=== PATIENT | female | born 2005 | race Caucasian/White ===

== ENCOUNTER 2024-02-28 05:49 | Day surgery (SDC) | payer OTHER, SELFPAY ==
[2024-02-28] VITALS (9 sets, daily range): BP systolic 113–138; BP diastolic 69–88; PULSE 78–102; RESP 16–18; TEMP 36.4–37; O2SAT 100; BMI 20.9
[2024-02-28 06:17] LABS: Internal QC Validated? YES +Cl - CLEAR BKGD; Pregnancy, Urine Negative Negative
--- NOTE | 2024-02-28 06:54 | PCM.PRE.AN2 ---
ASA Classification* ASA Classification ASA Classification: 1 Assessment & Plan Anesthesia* Anesthesia Assessment Anesthesia Assessment: Discussed sedation and/or anesthesia options, risks, benefits, and alternatives with patient/parents/legal guardian/POA. Questions invited. The patient/parents/legal guardian/POA seems to understand and agrees to proceed with anesthesia plan. Reviewed the physical assessment, medical history, allergy history and patient home medications list prior to surgery/procedure/anesthetic and documented any changes. Performed airway and anesthesia risk assessments. Anesthesia Type Anesthesia Type: MAC History Source History Obtained from:: Patient and Chart Anesthesia Focused Assessment* Temperature: 98.6 F Pulse Rate: 94 Blood Pressure: 138/85 Respiratory Rate: 16 Pulse Ox: 100 Oxygen Delivery Method: Room Air Airway Assessment Mouth opens: >3 cm Mallampati Score: IV Teeth Condition: Intact Neck Range of motion (ROM): Full ROM Focused Labs Anesthesia Preop lab: CBC CHEMISTRY COAG Urine Test Negative Negative 02/28/24 06:00 Pre-Assessment Diagnosis/Proposed Procedure Planned Operative Procedure(s): Excision, Pilonidal Cyst Anesthesia History Anesthesia History - music department chair: Anesthesia History - music department chair Hx Hospitalization No 02/14/24 11:05 Any Problems With Anesthesia No 02/14/24 11:05 Cholinesterase deficiency No 02/14/24 11:05 You/Your Family Experience No 02/14/24 11:05 fever (hyperthermia) with Relationship Recent Exposure to Contagious No 02/28/24 06:26 Disease Does patient have nerve No 02/14/24 11:05 stimulator Patient instructed to have device shut off --Does patient have Pacemaker No 02/28/24 06:28 or ICD? When Was Last Pacemaker Check QUESTION #4 FULL TEXT: You/Your Family Experience fever (hyperthermia) with Anesthesia Last Oral Intake Last Oral intake: Last Oral Intake NPO since 22:00 02/28/24 06:28 Meds taken in AM with sips of No 02/28/24 06:28 water? Meds patient instructed to take am of surgery PONV PONV - music department chair: PONV - music department chair Female Yes 02/14/24 11:05 HX of Motion Sickness No 02/14/24 11:05 HX of N/V After Surgery No 02/14/24 11:05 Non-Smoker Yes 02/14/24 11:05 Duration of Surgery greater No 02/14/24 11:05 than 60 minutes Number of Risk Factors 2 02/14/24 11:05 PONV Score Moderate Risk 02/14/24 11:05 Height & Weight Height & Weight: Anesthesia: Height & Weight Height 5 ft 6 in 02/28/24 06:28 Weight: 58.967 kg 02/28/24 06:28 Body Mass Index (BMI) 20.9 02/28/24 06:28 Respiratory Assessment Respiratory Assessment - music department chair: Respiratory Tract Infection Hx - music department chair Hx Respiratory Tract Infection No 02/14/24 11:05 STOP Sleep Apnea STOP Sleep Apnea - music department chair: STOP Sleep Apnea - music department chair Hx Hypertension No 02/14/24 11:05 Hx Sleep Apnea No 02/14/24 11:05 CPAP BIPAP Do you snore loudly (louder No 02/14/24 11:05 than talking or can be heard Do you often feel tired/ No 02/14/24 11:05 fatigued/ sleepy during daytime? Has anyone observed you stop No 02/14/24 11:05 breathing during sleep? STOP Results Negative 02/14/24 11:05 QUESTION #5 FULL TEXT : Do you snore loudly (louder than talking or can be heard through closed doors)? 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 Specify any problems Hx of Preganancy in last 3 No 02/14/24 11:05 Months Nurse Filling Out Transfusion VCHRISTIN 02/14/24 11:05 & Questions: Date: 02/14/24 02/14/24 11:05 Time: 11:06 02/14/24 11:05 Patient unable to answer at this time (ie. confused, unrespo /Reproduction History /Reproductive History - music department chair: /Reproductive Hx- music department chair Hx Now No 02/14/24 11:05 Gestational Age (in weeks): EDC: Hx Hx Para Hx Section SAB No 02/14/24 11:05 [facility] Medical History Wears glasses Anxiety Non-smoker Pilonidal cyst Home Medications ?Medication ?Instructions ?Recorded ?Last Taken ?Type vitamin C 30 mg-zinc citrate 1.1 1 tab PO DAILY 02/14/24 02/27/24 07:40 History mg-elderberry 25 mg chewable tablet (Sambucus Elderberry) vitamin C 500 mg-multivitamin with 2 tab PO DAILY 02/14/24 02/27/24 07:40 History minerals chewable tablet (Emergen-C) Allergy/AdvReac Type Severity Reaction Status Date / Time peanut (peanuts) Allergy Severe Other Verified 02/28/24 06:23 Hand Popped Corn Oven Attendant (Purell) Allergy Intermediate Hives Verified 02/28/24 06:23 Family History Grandmother Asthma Arthritis Bleeding disorder Thyroid disorder Grandfather Diabetes Hypertension High cholesterol CVA (cerebral vascular accident) Social History Smoking Status: Never smoker alcohol intake: never substance use type: does not use Review of Systems (Anesthesia) ROS Narrative System reviewed and no additional complaints, except as documented.
--- NOTE | 2024-02-28 07:18 | PCM.HP.STD ---
HPI - General General Date of Admission: 02/28/24 Date of Service: 02/28/24 Chief Complaint: pilonidal cyst HPI Narrative JEANETTE CORDOVA, is a 18 F who presents for elective surgery to excise pilonidal cyst [facility] Medical History Wears glasses Anxiety Non-smoker Pilonidal cyst Home Medications ?Medication ?Instructions ?Recorded ?Last Taken ?Type vitamin C 30 mg-zinc citrate 1.1 1 tab PO DAILY 02/14/24 02/27/24 07:40 History mg-elderberry 25 mg chewable tablet (Sambucus Elderberry) vitamin C 500 mg-multivitamin with 2 tab PO DAILY 02/14/24 02/27/24 07:40 History minerals chewable tablet (Emergen-C) Allergy/AdvReac Type Severity Reaction Status Date / Time peanut (peanuts) Allergy Severe Other Verified 02/28/24 06:23 Hand Impact Hammer Operator (Purell) Allergy Intermediate Hives Verified 02/28/24 06:23 Family History Grandmother Asthma Arthritis Bleeding disorder Thyroid disorder Grandfather Diabetes Hypertension High cholesterol CVA (cerebral vascular accident) Social History Smoking Status: Never smoker alcohol intake: never substance use type: does not use Vital Signs Vital Signs Vital Signs: 02/28/24 06:26 02/28/24 06:28 02/28/24 07:02 Temperature 98.6 F 98.6 F Temperature Source Temporal Pulse Rate 94 94 Respiratory Rate 16 16 Respiratory Pattern Normal Blood Pressure 138/85 H 138/85 H Blood Pressure Mean 102 Blood Pressure Source Monitor Blood Pressure Position Semi-Fowlers Blood Pressure Location Right Arm Pulse Ox 100 100 Oxygen Delivery Method Room Air Room Air Weight Weight: 130 lb Body Mass Index (BMI) 20.9 Physical Exam Const alert, oriented x3 and no apparent distress General Appearance: cooperative and comfortable Results Lab / Micro Data Labs: Laboratory Results - last 24 hr 02/28/24 06:00: Urine Test Negative Assessment & Plan Assessment/Plan (1) Pilonidal cyst: PLAN: Plan excision of pilonidal cyst
--- NOTE | 2024-02-28 07:30 | PILCYST_PTH ---
PATIENT: JEANETTE CORDOVA LOC: [facility] – [place] U#:[id number] AGE/SX: 18/F ROOM: RE02/28/[address]: Dr. Adán Pate MD : [id number] BED: DIS: 02/28/2024 SPEC #: [id number] RECD: 02/28/24 11:01 STATUS: HENRY REKayden #: [id number] SHANIKA: 02/28/24 07:[address]: Adán Pate DEPT: SURGICAL PATHOLOGY RECD BY: Clay Cassidy ENTERED: 02/28/24 11:49 SP TYPE: Pilonidal OTHR DR: Dr. Miles West MD Tissues: PILONIDAL TISSUE Procedures: Surgery Specimen Level III HEADER OPERATION: Excision, pilonidal cyst PRE-OP DIAGNOSIS: Pilonidal cyst TISSUE SUBMITTED: Pilonidal cyst MICROSCOPIC DIAGNOSIS Pilonidal cyst, excision: Consistent with changes of pilonidal cyst. AM. 02/29/2024 MICROSCOPIC DESCRIPTION Slides are reviewed. GROSS DESCRIPTION Received in fixative is one container labeled with the patient's name and designated Pilonidal cyst. The specimen consists of a piece of skin with underlying tissue measuring 2.5 x 0.5 and up to 1.0cm in thickness. The specimen is bisected and submitted entirely in one cassette. 02/28/2024 TC:2 CPT:01093
[2024-02-28] MEDS: Bupiv/Epi 0.25% 30 ML Vial (08:05)
--- NOTE | 2024-02-28 08:21 | PCM.POST.ANE ---
Anesthesia: Postop Eval I Current Vital Signs Temperature: 98 F Pulse Rate: 102 Blood Pressure: 131/88 Respiratory Rate: 16 Pulse Ox: 100 Oxygen Delivery Method: Room Air Assessment Airway patent: Yes Spontaneous unlabored respirations: Yes Mental status: Awake nausea: No Vomiting: No Anesthesia Complication: No Fluid Hydration Crystalloid volume administer (ml): 250 Total IV fluid infused: 250 Progress Note Anesthesia document: Postop Eval 1 completed: Yes
--- NOTE | 2024-02-28 08:23 | PCM.OPRPT ---
Problems Associated Problem List Diagnoses (1) Pilonidal cyst: Procedures Integumentary [id number]: [id number] Remove pilonidal cyst simple Operative Report (Standard) Operative Information Date of Procedure: 02/28/24 Pre-Operative Diagnosis: Pilonidal cyst Post-Operative Diagnosis: Pilonidal cyst Surgery/Procedure Performed: Excision of pilonidal cyst with primary closure centrifugal operator: Yes Multiple Punch Press Operator: Althea Han Tasks completed by first beater: Other Additional clinical project assistant?: No Type of Anesthesia: General and Local RN Documented Start/Stop Times: Operation Date: 02/28/24 07:30 Case Time Into Pre-Op 02/28/24 06:04 Out of Pre-Op 02/28/24 07:25 Anesthesia Start 02/28/24 07:29 Into Room 02/28/24 07:29 Procedure Start 02/28/24 07:53 Procedure End 02/28/24 08:06 Anesthesia End 02/28/24 08:14 Out of Room 02/28/24 08:14 Into Recovery 02/28/24 08:16 Procedure Start Time: 07:53 Procedure Stop Time: 08:06 Select all DRAINS/GRAFTS/IMPLANTS that apply: None Special Medications: None Estimated Blood Loss: 1 mL Fluids Replaced: None Specimen collected: Yes Description of specimen(s) removed: Pilonidal cyst Description of surgery: The patient is a 18-year-old female who was recently seen through my office with a pilonidal cyst. When I had seen her it had essentially almost healed. This responded to antibiotics. She presented my office to discuss having this definitively addressed that this does not recur in the future. I offered her excision and I felt that she would be a good candidate for primary closure. We discussed the details of the planned procedure and she wished to proceed. Following informed consent, she was brought to the operating room. A general endotracheal anesthesia was performed. Once adequately anesthetized and the tube was secured, the patient was then rolled onto the operating room table in a prone position. Appropriate padding and positioning was utilized. The pilonidal region was then prepped and draped in the usual sterile manner. About a 3 cm ellipse incision was made around the pilonidal cyst. I try to stay to the left of midline with the incision. This encompassed the pilonidal cyst punctum and resultant scar. This was removed down to deep subcutaneous tissue. Hemostasis was excellent. The removed tissue was then sent to pathology as indicated as pilonidal cyst. The wound was then closed using 2-0 Vicryl in the subdermal closure. 0 Nurolon was then utilized to close the skin to prevent dehiscence. Gauze and an ABD dressing was then applied. She was then rolled back onto the transport cart where she was extubated. She was then taken to recovery in good condition. Surgical Findings: Very small pilonidal cyst. Complications Complications: No Admit VTE Documentation VTE Present on Admission: No VTE Mechan Device Prophylaxis: SCD's VTE Pharm Prophylaxis ordered?: No Reason prophylaxis not ordered: Treatment Not Indicated
--- NOTE | 2024-02-28 08:36 | DCINST_ITS ---
Discharge Instructions Diet Discharge Diet: Light diet - advance as tolerated Activity Discharge Activity: Return to Normal Activity May shower in (days): 1 Dressing / Incision Call your doctor if your incision/area has: Continuous Slow Oozing, Sudden Increased Bleeding, Increased Pain/ Swelling, Increased Redness and Foul Smelling Discharge Call your doctor if you observe: Fever of 101 or Higher Change Dressing in: 1 day Cleanse incision/area with: Soap & Water Additional Dressing/Incision Instructions:: keep wound clean and keep covered; Ok to apply Neosporin Follow Up Care Please Follow Up With: Adán Pate MD When: 2 weeks Test Results: Test results from this visit will be discussed in further detail at your follow- up appointment, if applicable. Discharge Plan Admission Primary Reason for Your Visit: excision of pilonidal cyst Attending Provider: Adán Pate Primary Care Provider: Miles West Instructions Print Language: Luxembourgish Discharge Orders/Prescriptions Prescriptions: New oxycodone 5 mg/5 mL solution 5 mg PO Q6H PRN (Reason: pain) 3 Days Qty: 60 0RF Continued Emergen-C 500 mg tablet,chewable 2 tab PO DAILY Sambucus Elderberry 30-1.1-25 mg tablet,chewable 1 tab PO DAILY Referrals / Follow Up: Rosa Ruelas MD [Non-Staff] - Disposition Disposition (needs filled in before D/C Order can be placed): Home, Self Care
--- NOTE | 2024-02-28 10:12 | POSTOPAN2_ITS ---
Anesthesia Postop Eval I Sum Postop Eval Completion status Anesthesia document: Postop Eval 1 completed: Yes Anesthesia Postop Eval I Summary Anesthesia Postop Eval I Summary: Anesthesia Postop Eval I: Assessment Summary Airway patent Yes 02/28/24 08:22 SOFA [email or web address] Spontaneous unlabored Yes 02/28/24 08:22 [email or web address] respirations Mental status Awake 02/28/24 08:22 [email or web address] nausea No 02/28/24 08:22 SOFA [email or web address] Vomiting No 02/28/24 08:22 [email or web address] Anesthesia Postop Eval I: Fluid Summary Crystalloid volume administer 250 02/28/24 08:22 SOFA [email or web address] (ml) Colloids volume administered ( ml) Blood Product volume administered (ml) Total IV fluid infused 250 02/28/24 08:22 SOFA [email or web address] Anesthesia Postop Eval I: Summary Notes Anesthesia Complication No 02/28/24 08:22 SOFA [email or web address] Anesthesia Complication Comment: Post-operative progress note Anesthesia: Postop Eval II Evaluation Mental status: Awake Pain Level: 0 nausea: No Vomiting: No
--- NOTE | 2024-02-28 10:12 | PCM.POSTANE2 ---
Anesthesia Postop Eval I Sum Postop Eval Completion status Anesthesia document: Postop Eval 1 completed: Yes Anesthesia Postop Eval I Summary Anesthesia Postop Eval I Summary: Anesthesia Postop Eval I: Assessment Summary Airway patent Yes 02/28/24 08:22 LIGHT BULB [email or web address] Spontaneous unlabored Yes 02/28/24 08:22 LIGHT BULB [email or web address] respirations Mental status Awake 02/28/24 08:22 LIGHT BULB [email or web address] nausea No 02/28/24 08:22 LIGHT BULB [email or web address] Vomiting No 02/28/24 08:22 LIGHT BULB [email or web address] Anesthesia Postop Eval I: Fluid Summary Crystalloid volume administer 250 02/28/24 08:22 LIGHT BULB [email or web address] (ml) Colloids volume administered ( ml) Blood Product volume administered (ml) Total IV fluid infused 250 02/28/24 08:22 LIGHT BULB [email or web address] Anesthesia Postop Eval I: Summary Notes Anesthesia Complication No 02/28/24 08:22 LIGHT BULB [email or web address] Anesthesia Complication Comment: Post-operative progress note Anesthesia: Postop Eval II Evaluation Mental status: Awake Pain Level: 0 nausea: No Vomiting: No
== END 2024-02-28 09:30 | disposition home or self-care (01) ==
LOC: SDC 05:52 → AC 05:53
PROVIDERS: Anesthesiology; PCP Family Medicine; Referring Provider Surgery; Visit Provider Surgery
PROC: (CPT 11770; principal; 2024-02-28 07:15)
DX: L05.91 Pilonidal cyst without abscess (principal)
CPT/HCPCS: 11770; 00300; 81025; 88304; A4216; J2405

== ENCOUNTER 2024-03-03 09:44 | Emergency (ER) | payer OTHER, SELFPAY ==
[2024-03-03 09:45] VITALS: BP 117/85; PULSE 105; RESP 18; TEMP 36.9; O2SAT 100; BMI 21.0
--- NOTE | 2024-03-03 10:04 | EKG12_ITS ---
Test Reason : GENERAL Blood Pressure : */* mmHG Vent. Rate : 91 BPM Atrial Rate : 91 BPM P-R Int : 170 ms QRS Dur : 94 ms QT Int : 334 ms P-R-T Axes : 66 55 48 degrees QTcB Int : 410 ms Normal sinus rhythm Normal ECG Confirmed by ALYSSA DUVALL, TONEY ([id number]), publication editor RANJEET SOARES ([id number]) on 03/05/2024 7:03:21 AM Referred By: Confirmed By: TONEY SHAH MD
--- NOTE | 2024-03-03 10:20 | EDS_ITS ---
HPI History of Present Illness Chief Complaint: General Illness Narrative Narrative: Patient is a 18-year-old female with a past medical history of recent pilonidal cyst surgery on Tuesday who presents to the emergency department the chief complaint of sore throat and congestion. States that yesterday she started to develop a sore throat and congestion. States that she know that she had a fever yesterday and noted that they checked her temperature using a thermometer via her eardrum and noted that this was 101. She states that she has been taking oxycodone and Tylenol at home. She states that they called her surgeon and they felt that this was not related to her surgery they advised her to go to an urgent care. States that she went to an urgent care and they ultimately sent her here because her heart rate was elevated. Patient states that her surgical site appears to be healing well and has no concerns at this point time from that standpoint. Patient states that her mother is recently getting over a sinus infection. Father at bedside states that they would like her tested for COVID flu and RSV. [facility] Medical History Wears glasses Anxiety Non-smoker Pilonidal cyst Home Medications ?Medication ?Instructions ?Recorded ?Last Taken ?Type vitamin C 30 mg-zinc citrate 1.1 1 tab PO DAILY 02/14/24 02/27/24 07:40 History mg-elderberry 25 mg chewable tablet (Sambucus Elderberry) vitamin C 500 mg-multivitamin with 2 tab PO DAILY 02/14/24 02/27/24 07:40 History minerals chewable tablet (Emergen-C) oxycodone 5 mg/5 mL oral solution 5 mg (5 mL) PO Q6H PRN pain 3 days 02/28/24 Unknown Rx #60 mL Allergy/AdvReac Type Severity Reaction Status Date / Time peanut (peanuts) Allergy Severe Other Verified 03/03/24 09:45 Hand Tube Skiver (Purell) Allergy Intermediate Hives Verified 03/03/24 09:45 Family History Grandmother Asthma Arthritis Bleeding disorder Thyroid disorder Grandfather Diabetes Hypertension High cholesterol CVA (cerebral vascular accident) Social History Smoking Status: Never smoker alcohol intake: never substance use type: does not use ROS ROS ED ROS Narrative Constitutional: Complains of fever and chills noted above denies headaches, lightness, dizziness Eyes: Denies changes double vision blurry vision Cardiovascular: Denies chest pain or palpitations Respiratory: Denies coughing wheezing shortness of breath Abdomen: Denies abdominal pain nausea vomit diarrhea : Denies any urinary symptoms Neurological: Denies any numbness, weakness, tingling Musculoskeletal: Denies any back pain Skin: Denies any rashes or lesions EXAM Physical Exam Narrative Exam Narrative: General: Patient lying in bed rest comfortably did not appear to be in acute distress Head: Atraumatic, normocephalic Eyes, ears, nose, throat: PERRL bilateral, EOMI bilateral, no conjunctival injection noted, patient has mild posterior pharynx erythema noted, uvula midline, no concern for peritonsillar abscess no exudates noted Neck: Soft, supple, trachea midline Cardiovascular: Patient tachycardic with a regular rhythm no murmurs gallops rubs noted Respiratory: Clear to auscultation bilaterally Abdomen: Soft, nondistended, nontender to palpation, bowel sounds present x 4 Extremities: +5/5 strength noted in the bilateral upper and lower extremities, Neurological: Patient follow commands knew that she was at [facility] Skin: Warm, dry, tact Const Vital Signs: 03/03/24 09:45 03/03/24 09:53 Temperature 98.4 F Temperature Source Oral Pulse Rate 105 H Respiratory Rate 18 Respiratory Effort Normal Non-Labored Respiratory Pattern Normal Blood Pressure 117/85 H Blood Pressure Mean 95 Pulse Ox 100 Oxygen Delivery Method Room Air MDM MDM MDM Narrative Medical decision making narrative: patient is a 18-year-old female who presented to the Emergency Department with chief complaint of congestion and sore throat. Patient will have a workup performed here on the differential diagnose includes but not limited to strep throat, upper respiratory infection secondary viral etiology. Once workup is obtained reviewed she will be reevaluated. Patient test for strep was negative, COVID flu and RSV were negative. Patient ambulated well here in the emergency department no evidence hypoxia heart rate w as around 100 bpm during ambulation. She was advised that she likely has an upper respiratory infection secondary viral etiology and she was encouraged to continue supportive care and rotate Tylenol and ibuprofen [id number] and use her oxycodone for her surgical pain. Patient was encouraged to return with worsening symptoms or other concerns otherwise she is to follow-up with her primary care physician outpatient setting. She is agreeable this plan as well as her father at bedside all question concerns answered she was discharged home in stable condition. Discharge Plan Triage Chief Complaint: General Illness ED Provider: Janak Goss Dx/Rx/DC Orders Clinical Impression: Sore throat, Upper respiratory infection, viral Prescriptions: No Action Emergen-C 500 mg tablet,chewable 2 tab PO DAILY Sambucus Elderberry 30-1.1-25 mg tablet,chewable 1 tab PO DAILY oxycodone 5 mg/5 mL solution 5 mg PO Q6H PRN (Reason: pain) 3 Days Qty: 60 0RF Primary Care Provider: Miles West Referrals: Miles West MD [Primary Care Provider] - Activity Restrictions/Additional Instructions: Continue supportive care. Rotate Tylenol and ibuprofen [id number]. Follow-up with your doctor in the outpatient setting. Return with worsening symptoms or any concerns. Follow-up on the strep throat culture with your doctor. Print Language: Bulgarian Disposition Disposition: Home, Self Care
[2024-03-03 12:37] VITALS: BP 114/67; PULSE 108; RESP 16; TEMP 36.3; O2SAT 100
== END 2024-03-03 12:38 | disposition home or self-care (01) ==
PROVIDERS: Emergency Provider Emergency Medicine; PCP Family Medicine; Visit Provider Emergency Medicine
DX: J06.9 Acute upper respiratory infection, unspecified (principal)
CPT/HCPCS: 87631; 87651; 93005; 99282